=== PATIENT | female | born 1970 | race Caucasian/White ===

== ENCOUNTER 2016-09-25 10:02 | Emergency (ER) | payer SELFPAY | END 2016-09-25 11:17 | disposition home or self-care (01) | LOC: D.ER 10:02 | DX: J20.9 Acute bronchitis, unspecified (principal); J06.9 Acute upper respiratory infection, unspecified; F17.200 Nicotine dependence, unspecified, uncomplicated; I10 Essential (primary) hypertension; E07.9 Disorder of thyroid, unspecified ==

== ENCOUNTER 2019-03-22 11:04 | Observation (INO) | payer SELFPAY ==
[~2019-03-22] VITALS: Ht 154.9 cm; Wt 82.7 kg
[2019-03-22 11:11] VITALS: Ht 154.9 cm; Wt 82.7 kg
[2019-03-22] MEDS ORDERED: ZESTORETIC 20-1 EACH PO (11:12)
[2019-03-22] MEDS ORDERED: UNITHROID50 MCG PO (11:13)
[2019-03-22] MEDS ORDERED: MULTI-DAY VITAM1 TAB PO (11:13)
[2019-03-22 11:30] VITALS: BP 117/68
[2019-03-22 11:41] LABS: BASOPHILS 0.3 % (0-2); EOSINOPHILS 1.3 % (0-7); HEMATOCRIT 42.7 % (36.0-48.0); HEMOGLOBIN 14.6 g/dL (12-16); IMMATURE GRANULOCYTES 0.2 % (0-5); LYMPHOCYTES 23.4 % (15-50); MCH 31.4 pg (26.0-34.0); MCHC 34.2 g/dL (31.0-37.0); MCV 91.8 fL (80.0-100.0); MEAN PLATELET VOLUME 9.6 fL (7.4-10.4); MONOCYTES 8.8 % (2-11); PLATELET COUNT 338 10x3/uL (130-400); RBC 4.65 10x6/uL (4.00-5.40)
--- NOTE | 2019-03-22 11:43 | NUR ---
EKG @1105 - NORMAL SINUS first nitro @ 1142 - BP 160/86 - 7/10 "Pressure" SECOND NITRO @ 1147 BP 169/95 7/10 THIRD NITRO @ 1152 BP - 136/86 /
[2019-03-22 11:53] LABS: ALKALINE PHOSPHATASE 90 U/L (46-116); ALT (SGPT) 36 U/L (10-68); BILIRUBIN - TOTAL 0.41 mg/dL (0.2-1.3); CALC OSMOLALITY 272 mosm/kg (275-300); CARBON DIOXIDE 27.3 mmol/L (21.0-32.0); CHLORIDE - SERUM 102 mmol/L (98-107); CREATININE - SERUM 0.8 mg/dL (0.6-1.3); GLUCOSE 106 mg/dL (74-106); PROTEIN - SERUM 7.7 g/dL (6.4-8.2); SODIUM 136 mmol/L (136-145); UREA NITROGEN 15 mg/dL (7-18); eGFR NON AFRICAN AMERICAN 81 mL/min (90-120)
[2019-03-22 11:56] LABS: APTT 30.7 SECONDS (22.8-39.4); INR 1.01 (0.85-1.17); PROTIME 12.8 SECONDS (11.6-15.0)
[2019-03-22 12:04] VITALS: BP 128/63
[2019-03-22 12:05] LABS: CKMB 2.7 U/L (0.0-3.6); CREATINE KINASE 332 UL (21-215); MAGNESIUM - SERUM 2.1 mg/dL (1.8-2.4); TROPONIN-I < 0.017 ng/mL (0.000-0.060)
[2019-03-22 16:15] VITALS: BP 118/73
--- NOTE | 2019-03-22 17:23 | NUR ---
PATIENT CAN BE DISCHARGED FROM ED PER DIMAS MORALES NOTIFIED PATIENT WILL NOT BE AN ADMIT. PATIENT IS OKAY FOR DISCHARGE.
[2019-03-22 17:33] VITALS: BP 119/64
[2019-03-22 17:35] VITALS: BP 137/80
--- NOTE | 2019-03-25 16:51 | ST ---
PATIENT:STACY WAYNE MEDICAL RECORD: [id number] SEX: F LOCATION:[facility] ORDER #: ADMISSION DATE: 03/22/19 AGE OF PATIENT: 48 REFERRING PHYSICIAN: INTERPRETING PHYSICIAN: LUZ ELENA JIMENEZ MD DATE OF SERVICE: 03/22/2019 PROCEDURE: Stress only nuclear stress test. INDICATION: Chest pain of unknown etiology. PROCEDURE IN DETAIL: She was exercised on standard Lexiscan protocol with 28.4 mCi of sestamibi given at peak stress. FINDINGS: Gated SPECT reveals preserved ejection fraction at 81% with good wall motion and thickening and brightening throughout all segments. SPECT imaging Cardiolite was used as myocardial fusion agent. There is homogeneous uptake throughout all segments at rest and stress with no evidence of inducible ischemia or previous infarction. OVERALL IMPRESSION: 1. This is a normal nuclear stress test with no evidence of inducible ischemia or previous infarction. 2. Gated SPECT reveals a preserved ejection fraction at 81%. In this patient with ongoing symptomatology, the current scan does not suggest the presence of hemodynamically significant coronary artery disease. Evaluate noncardiac etiology of chest pain. TRANSINT:[id number] Voice Confirmation ID: [id number] DOCUMENT ID: [id number] LUZ ELENA JIMENEZ MD at 1651 CC: [id number] DICTATION DATE: 03/22/19 1630 DIRECTOR HR COMMUNICATIONS: 03/23/19 0131 DIS IN 03/22/19 [facility] [address] [place] [address]
--- NOTE | 2019-03-25 16:51 | EC ---
PATIENT:STACY WAYNE DATE OF SERVICE: 03/22/19 SEX: F MEDICAL RECORD: [id number] DATE OF : 72 LOCATION:[facility] AGE OF PATIENT: 48 ADMISSION DATE: 03/22/19 REFERRING PHYSICIAN: INTERPRETING PHYSICIAN: LUZ ELENA KIMBROUGH MD ECHOCARDIOGRAM REPORT ECHO CHARGES 4 ECHO COMPLETE Date: 03/22/19 CLINICAL DIAGNOSIS: CP ECHOCARDIOGRAPHIC MEASUREMENTS (adult normal given) AC root (d.<3.7cm) 2.6 cm LV Septum d (<1.2 cm> 0.8 cm Valve Excursion 1.3 cm LV Septum (systole) 1.2 cm Left Atria (s.<4.0cm> 3.5 cm LVPW d(<1.2cm) 1.2 cm RV (d.<2.3cm) 2.6 cm LVPW (sytole) 1.5 cm LV diastole(<5.6CM) 4.3 cm MV E-F(>70mm/sec) cm LV systole 2.9 cm LVOT Diameter 1.8 cm MV exc.(>10mm) cm Est.ejection fraction (50-75%) % DOPPLER: LVIT cm/sec A 71 cm/sec E 70 cm/sec LA cm/sec RVSP 17.8 mmHg LVOT 110 cm/sec AOP1/2T m/s Asc. Ao 130 cm/sec RVOT 71 cm/sec RA cm/sec PA 81 cm/sec AV Gradient Peak 6.8 mmHg AV Mean 3.5 mmHg AV Area 2.1 cm MV Gradient Peak 3.1 mmHg MV Mean 1.3 mmHg MV Area cm COMMENTS: Fitter Tacker: Chuck COOPER Plate Cleaner: 1 Dr. Kimbrough TAPE# PACS Pericardial Effusion N DATE OF SERVICE: 03/22/2019 ECHOCARDIOGRAM DATE OF SERVICE: 03/22/2019 FINDINGS: 1. Left ventricular chamber size is within normal limits. Left ventricular systolic function is normal. Overall ejection fraction estimated at 55%. 2. Left atrium, right atrium, and right ventricular chamber sizes are within ECHOCARDIOGRAM REPORT [id number] STACY WAYNE normal limits. 3. Valvular structures have normal structure and motion. 4. Doppler interrogation reveals no significant valvular insufficiency or stenosis. 5. No evidence of pericardial effusion or left ventricular thrombus. TRANSINT:[id number] Voice Confirmation ID: [id number] DOCUMENT ID: [id number] LUZ ELENA KIMBROUGH MD at 1651 CC: [id number] DICTATION DATE: 03/23/19 1152 DIRECTOR WEIGHTS AND MEASURES: 03/23/19 1202 DIS IN 03/22/19 [facility] [address] [place] [place] [id number]
--- NOTE | 2019-03-25 16:51 | DS ---
PATIENT:STACY SAAVEDRA :72 MEDICAL RECORD: [id number] DISCHARGE SUMMARY ADMISSION DATE: 03/22/19 DISCHARGE DATE: 03/22/19 DATE OF DISCHARGE: 03/22/2019 DIAGNOSES: 1. Chest pain. 2. Normal nuclear stress test. 3. Hypertension. 4. Hypothyroidism, on replacement. HISTORY: Ms. Saavedra presents with chest discomfort; however, nuclear stress test was absolutely normal. Discharged home to continue her lisinopril and hydrochlorothiazide. Cardiac followup only if chest pain continues. TRANSINT:[id number] Voice Confirmation ID: [id number] DOCUMENT ID: [id number] LUZ ELENA JIMENEZ MD at 1651 CC: [id number] DICTATION DATE: 03/22/19 170 CLERK ANALYST: 03/23/19 0236 DIS IN 03/22/19 [facility] [address] [place] [address]
== END 2019-03-22 17:48 | disposition home or self-care (01) ==
LOC: D.ER 11:04 → OBSVTIME 13:45 → D.CLR 13:45 → D.ER 17:48 → D.CLR 17:48
PROVIDERS: Family Medicine; ADMIT Internal Medicine Interventional Cardiology; ATTEND Internal Medicine Interventional Cardiology
DX: R07.9 Chest pain, unspecified (principal); E03.9 Hypothyroidism, unspecified; I10 Essential (primary) hypertension; F17.200 Nicotine dependence, unspecified, uncomplicated; R55 Syncope and collapse; R53.1 Weakness

== ENCOUNTER 2019-08-15 16:57 | Emergency (ER) | payer SELFPAY ==
[~2019-08-15] VITALS: Ht 154.9 cm; Wt 86.4 kg
[~2019-08-15 16:57] MED LIST: MULTI-DAY VITAM1 TAB PO; UNITHROID50 MCG PO; ZESTORETIC 20-1 EACH PO
[2019-08-15 17:02] VITALS: Ht 154.9 cm; Wt 86.4 kg
[2019-08-15 22:03] VITALS: BP 155/83
== END 2019-08-15 22:03 | disposition home or self-care (01) ==
LOC: D.ER 16:57
DX: M54.2 Cervicalgia (principal); R51 Headache; V89.2XXA Person injured in unspecified motor-vehicle accident, traffic, initial encounter; Y93.9 Activity, unspecified; Y92.9 Unspecified place or not applicable; E07.9 Disorder of thyroid, unspecified; I10 Essential (primary) hypertension

== ENCOUNTER 2020-11-20 18:28 | Emergency (ER) | payer SELFPAY ==
[~2020-11-20] VITALS: Ht 154.9 cm; Wt 86.4 kg
[~2020-11-20 18:28] MED LIST changes: +BAYER CHEWABLE81 MG PO; +LEVOFLOXACIN500 MG PO; +TYLENOL W/CODEI1 TAB PO
[2020-11-20 18:55] VITALS: BP 170/85; Ht 154.9 cm; Wt 86.4 kg
[2020-11-20] MEDS ORDERED: MUCINEX600 MG PO (18:58)
[2020-11-20] MEDS ORDERED: FLUTICASONE PRO16 GM NASAL (18:58)
[2020-11-20] MEDS ORDERED: DOXYCYCLINE HY100 M2 PO (19:30)
[2020-11-20] MEDS ORDERED: LOPERAMIDE HCL2 MG PO (19:30)
[2020-11-20 19:51] LABS: SARS-CoV-2 ANTIGEN NEGATIVE- SARS-COV-2 (NEGATIVE)
[2020-11-20 19:51] LABS: INFLUENZA TYPE A NEGATIVE (NEGATIVE); INFLUENZA TYPE B NEGATIVE (NEGATIVE)
== END 2020-11-20 21:18 | disposition home or self-care (01) ==
LOC: D.ER 18:28
PROVIDERS: Family Medicine
DX: B34.9 Viral infection, unspecified (principal); I10 Essential (primary) hypertension; K21.9 Gastro-esophageal reflux disease without esophagitis; Z72.0 Tobacco use